=== PATIENT | female | born 1980 | race Caucasian/White ===

== ENCOUNTER 2020-03-24 11:04 | Emergency (ER) | payer OTHER, SELFPAY ==
--- NOTE | 2020-03-24 11:08 | ED.FEMALEGU ---
HPI - Female Genitourinary General Chief complaint: Urogenital-Female Stated complaint: pos uti Time Seen by Provider: 03/24/20 11:09 Source: patient and RN notes reviewed History of Present Illness HPI Narrative: Patient is a 39-year-old female who presents the urgent care with complaints of a possible UTI. Patient states that she woke up this morning with a severe urge to urinate. Patient states that she was able to go but did notice blood when she wiped. Patient states that a few minutes later she felt the urge to go again and was unable to urinate. Patient states that she has some mild suprapubic discomfort as well as dysuria. Denies of any chronic history of UTIs. States that she was recently on her. But did place a tampon, noticing the blood was actually coming from the urine. Patient denies of any abdominal pain at this time. Denies of nausea, vomiting, fever, low back pain. Patient has not taken anything [id number] for her symptoms. Patient is slightly anxious but otherwise no acute distress noted. No other acute complaints. Patient is aware of the plan of care. Some parts of this dictation were generated by voice recognition software and may contain typographical and/or grammatical inaccuracies. Related Data Allergies Allergy/AdvReac Type Severity Reaction Status Date / Time No Known Allergies Allergy Mild Verified 03/24/20 11:05 Review of Systems Review of Systems: Narrative: CONSTITUTIONAL: Denies fever, chills, or sweats. EYES: Denies visual changes, redness, or discharge. ENT: Denies rhinorrhea, congestion, sore throat, or otalgia. CARDIOVASCULAR: Denies chest pain, palpitations, or edema. RESPIRATORY: Denies cough or dyspnea. GASTROINTESTINAL: Denies abdominal pain, nausea, vomiting, or diarrhea. GENITOURINARY: Reports of mild suprapubic pressure, dysuria and hematuria SKIN: Denies rash or itching. MUSCULOSKELETAL: Denies back pain, joint pain, or myalgia. NEUROLOGIC: Denies headache, numbness, or weakness. All other systems reviewed are negative, except as documented in HPI. [facility] Social History Social History Gender identity (if verbalized by the patient): Female Comments At the time of my signature, I reviewed and agree with the nursing past medical, surgical, social, and family history. There is no relevant family history pertinent to the patient complaint. Exam Narrative: Exam Narrative: GENERAL: This is a well-nourished, well-developed patient, in no apparent distress. HEAD: normocephalic, atraumatic. EYES: PERRL. Sclera clear/white. Vision is grossly intact. EARS: External ears normal NOSE: External nose normal with no obvious nasal discharge, nares without redness, no rhinorrhea. THROAT: Mucous membranes moist NECK: Neck supple CARDIOVASCULAR: Regular rate and rhythm without murmurs, gallops, or rubs. RESPIRATORY: Clear to auscultation. Breath sounds equal bilaterally. No wheezes, rales, or rhonchi. GASTROINTESTINAL: Abdomen soft, mild suprapubic tenderness tender, nondistended. Bowel sounds are active. SKIN: warm, intact with no suspicious lesions or rash, good texture and turgor. NEURO: awake, alert, and oriented to person, place and time. There were no obvious focal neurologic abnormalities. EXTREMITIES: No clubbing, cyanosis, or edema. BACK: Negative bilateral CVA tenderness Course Vital Signs Vital signs: Vital Signs Temperature 99.3 F 03/24/20 11:22 Pulse Rate 110 H 03/24/20 11:22 Respiratory Rate 16 03/24/20 11:22 Blood Pressure 117/76 03/24/20 11:22 Pulse Oximetry 99 03/24/20 11:22 Temperature 99.3 F 03/24/20 11:22 Pulse Rate 110 H 03/24/20 11:22 Respiratory Rate 16 03/24/20 11:22 Blood Pressure 117/76 03/24/20 11:22 Pulse Oximetry 99 03/24/20 11:22 Reviewed MDM - Female Genitourinary MDM Narrative Medical decision making narrative: Reviewed lab results with the patient. She is aware that urine analysis is indicative of a urinary t
[2020-03-24 11:22] VITALS: BP 117/76; PULSE 110; RESP 16; TEMP 37.4; O2SAT 99
== END 2020-03-24 11:33 | disposition home or self-care (01) ==
PROVIDERS: Emergency Provider Nurse Practitioner Family; PCP Internal Medicine
DX: N39.0 Urinary tract infection, site not specified (principal)
CPT/HCPCS: 81003; 87077; 87086; 87088; 87186; 99213; G0463